=== PATIENT | male | born 1950 | race Caucasian/White ===

== ENCOUNTER 2017-08-20 14:32 | Inpatient (IN) | payer MEDICARE ==
[2017-08-20] MEDS ORDERED: Ondansetron 4 MG/2 ML SDV IVPUSH ONE (14:59)
[2017-08-20] MEDS ORDERED: Sodium Chloride 0.9% 10 ML Syringe FLUSH PRN (15:00)
[2017-08-20] MEDS ORDERED: Sodium Chloride 0.9% 1,000 ML IV ONE ×2 (15:05→16:28)
--- NOTE | 2017-08-20 15:16 | EDM.PDOC ---
ED HPI GENERAL MEDICAL PROBLEM - General Chief Complaint: General Stated Complaint: GRAVES DISEASE/FEELS TERRIBLE Time Seen by Provider: 08/20/17 15:00 Source of Information: Reports: Patient History Limitations: Reports: Other (almost no old records available) - History of Present Illness INITIAL COMMENTS - FREE TEXT/NARRATIVE: 67 yo male being tx'd for Grave's Dz has been experiencing a gradual increase in his thyroid numbers of late. Sx's now include weakness, fatigue, tremor, and nausea/vomiting. He has been in contact with his primary who increased his meds recently without effect yet apparently. Gets his care for the Grave's primarily in [place] with Dr. Payne endocrinology. Onset: Gradual Duration: Week(s):, Chronic, Getting Worse Location: Reports: Generalized Quality: Reports: Other (no pain) Severity: Moderate Improves with: Reports: None Worsens with: Reports: Other (? time) Context: Reports: Other (Grave's Dz) Associated Symptoms: Reports: Nausea/Vomiting, Weakness, Other (tremor). 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) (Usual meds.) Bilateral Leg Pain Score (Numeric/FACES): 3 - Related Data Allergies Allergy/AdvReac Type Severity Reaction Status Date / Time No Known Allergies Allergy Verified 08/20/17 14:50 Home Meds: Home Meds Betamethasone/Propylene Glyc [Betamethasone DP Aug 0.05%] 30 ml TP Q8HR PRN 03/01 [History] Methimazole 5 mg PO BEDTIME 08/20/17 [History] Methimazole 10 mg PO DAILY 08/20/17 [History] Social & Family History - Tobacco Use Second Hand Smoke Exposure: No - Alcohol Use Days Per Week of Alcohol Use: 0 - Recreational Drug Use Recreational Drug Use: No ED ROS GENERAL - Review of Systems Review Of Systems: See Below Constitutional: Reports: Fatigue HEENT: Reports: No Symptoms Respiratory: Reports: No Symptoms Cardiovascular: Reports: No Symptoms Endocrine: Reports: Fatigue GI/Abdominal: Reports: Hematemesis (small amounts), Nausea, Vomiting. Denies: Black Stool, Bloody Stool, Constipation, Diarrhea, Distension, Flatus, Hematochezia, Melena, Stool Incontinence : Reports: No Symptoms Musculoskeletal: Reports: No Symptoms Skin: Reports: No Symptoms Neurological: Reports: No Symptoms Psychiatric: Reports: No Symptoms ED EXAM, GENERAL - Physical Exam Exam: See Below Exam Limited By: No Limitations General Appearance: Alert, WD/WN, Mild Distress Eye Exam: Bilateral Eye: Proptosis Ears: Normal External Exam, Normal Canal, Hearing Grossly Normal, Normal TMs Ear Exam: Bilateral Ear: Auricle Normal, Canal Normal, TM normal Nose: Normal Inspection, Normal Mucosa, No Blood Throat/Mouth: Normal Inspection, Normal Lips, Normal Oropharynx, Normal Voice, No Airway Compromise Head: Atraumatic, Normocephalic Neck: Normal Inspection, Supple, Non-Tender Respiratory/Chest: No Respiratory Distress, Lungs Clear, Normal Breath Sounds, No Accessory Muscle Use Cardiovascular: Regular Rate, Rhythm, Tachycardia (mildly tachy) GI/Abdominal: Normal Bowel Sounds, Soft, Non-Tender, No Distention Back Exam: Normal Inspection. No: CVA Tenderness (R), CVA Tenderness (L) Extremities: Normal Inspection, Normal Range of Motion, Non-Tender, No Pedal Edema Neurological: Alert, Oriented, CN II-XII Intact, Normal Cognition, No Motor/ Sensory Deficits Psychiatric: Normal Affect, Normal Mood Skin Exam: Warm, Dry, Intact, Normal Color, No Rash Lymphatic: No Adenopathy Course - Vital Signs Text/Narrative:: Case discussed with endocrinology, Dr. Payne, [facility]. Recommends increasing his methimazole to 20 mg tid for a few days and then backing off again on the dose. Metoprolol 25 mg bid also should be given. Dr. Fitzgerald called @ 1721h Bladder scan 37 ml Last Recorded V/S: Last Vital Signs Temp 39.7 C H 08/20/17 16:17 Pulse 75 08/20/17 17:10 Resp 16 08/20/17 17:10 BP 129/59 L 08/20/17 17:10 Pulse Ox 95 08/20/17 17:10 - Orders/Labs/Meds Orders: Active Orders 24 hr Category Date Time Status Bladder Scan [RC] ONETIME Care 08/20/17 17:05 Active Cardiac Monitoring [RC] .As Directed Care 08/20/17 15:06 Active CULTURE BLOOD [BC] Stat Lab 08/20/17 16:05 Received CULTURE BLOOD [BC] Stat Lab 08/20/17 16:15 Received CULTURE URINE [RM] Stat Lab 08/20/17 17:04 Received Ciprofloxacin in D5W [Cipro in D5W 400 MG/200 ML] 400 Med 08/20/17 17:02 Active mg Premix Bag 1 bag IV ONETIME Sodium Chloride 0.9% [Normal Saline] 1,000 ml Med 08/20/17 16:28 Active IV .BOLUS Sodium Chloride 0.9% [Saline Flush] Med 08/20/17 15:00 Active 10 ml FLUSH ASDIRECTED PRN Saline Lock Insert [OM.PC] Routine Oth 08/20/17 15:00 Ordered Medication Orders Sodium Chloride (Normal Saline) 1,000 mls @ 1,000 mls/hr IV .BOLUS ONE Stop: 08/20/17 17:27 Last Admin: 08/20/17 16:36 Dose: 1,000 mls/hr Ciprofloxacin/Dextrose 400 mg/ (Premix) 200 mls @ 200 mls/hr IV ONETIME ONE Stop: 08/20/17 18:01 Last Admin: 08/20/17 17:12 Dose: 200 mls/hr Sodium Chloride (Saline Flush) 10 ml FLUSH ASDIRECTED PRN PRN Reason: Keep Vein Open Last Admin: 08/20/17 15:23 Dose: 10 ml Labs: Laboratory Tests 08/20/17 08/20/17 08/20/17 Range/Units 15:08 15:12 15:15 WBC 21.2 H (4.5-11.0) K/uL RBC 4.94 (4.30-5.90) M/uL Hgb 15.2 H D (12.0-15.0) g/dL Hct 43.8 (40.0-54.0) % MCV 89 (80-98) fL MCH 31 (27-31) pg MCHC 35 (32-36) % Plt Count 236 (150-400) K/uL Sodium 135 L (140-148) mmol/L Potassium 4.3 (3.6-5.2) mmol/L Chloride 101 (100-108) mmol/L Carbon Dioxide 22 (21-32) mmol/L Anion Gap 16.3 H (5.0-14.0) mmol/L BUN 16 (7-18) mg/dL Creatinine 1.1 (0.8-1.3) mg/dL Est Cr Clr Drug Dosing 66.36 mL/min Estimated GFR (MDRD) > 60 (>60) Glucose 109 H (74-106) mg/dL Lactic Acid (0.7-2.1) mmol/L Calcium 9.1 (8.5-10.1) mg/dL Free T4 1.86 H (0.76-1.46) ng/dL Free T3 4.75 H (2.18-3.98) pg/dL Urine Color Urine Appearance Urine pH (4.5-8.0) Ur Specific [place] (1.008-1.030) Urine Protein (NEGATIVE) mg/dL Urine Glucose (UA) (NEGATIVE) mg/dL Urine Ketones (NEGATIVE) mg/dL Urine Occult Blood (NEGATIVE) Urine Nitrite (NEGAITVE) Urine Bilirubin (NEGATIVE) Urine Urobilinogen (NORMAL) mg/dL Ur Leukocyte Esterase (NEGATIVE) Urine RBC (0-5) Urine WBC (0-5) Ur Epithelial Cells Amorphous Sediment Urine Bacteria Urine Mucus 08/20/17 08/20/17 Range/Units 16:15 16:31 WBC (4.5-11.0) K/uL RBC (4.30-5.90) M/uL Hgb (12.0-15.0) g/dL Hct (40.0-54.0) % MCV (80-98) fL MCH (27-31) pg MCHC (32-36) % Plt Count (150-400) K/uL Sodium (140-148) mmol/L Potassium (3.6-5.2) mmol/L Chloride (100-108) mmol/L Carbon Dioxide (21-32) mmol/L Anion Gap (5.0-14.0) mmol/L BUN (7-18) mg/dL Creatinine (0.8-1.3) mg/dL Est Cr Clr Drug Dosing mL/min Estimated GFR (MDRD) (>60) Glucose (74-106) mg/dL Lactic Acid 1.3 (0.7-2.1) mmol/L Calcium (8.5-10.1) mg/dL Free T4 (0.76-1.46) ng/dL Free T3 (2.18-3.98) pg/dL Urine Color [place] Urine Appearance Cloudy Urine pH 5.0 (4.5-8.0) Ur Specific [place] 1.020 (1.008-1.030) Urine Protein Negative (NEGATIVE) mg/dL Urine Glucose (UA) Normal (NEGATIVE) mg/dL Urine Ketones 15 H (NEGATIVE) mg/dL Urine Occult Blood Moderate (NEGATIVE) Urine Nitrite Negative (NEGAITVE) Urine Bilirubin Small (NEGATIVE) Urine Urobilinogen Normal (NORMAL) mg/dL Ur Leukocyte Esterase Moderate (NEGATIVE) Urine RBC 5-10 H (0-5) Urine WBC Semi-packed H (0-5) Ur Epithelial Cells Moderate Amorphous Sediment Few Urine Bacteria Few Urine Mucus Few Meds: Medications Generic Name Dose Route Start Last Admin Trade Name Freq PRN Reason Stop Dose Admin Sodium Chloride 1,000 mls @ 1,000 mls/hr 08/20/17 16:28 08/20/17 16:36 Normal Saline IV 08/20/17 17:27 1,000 mls/hr .BOLUS ONE Administration Ciprofloxacin/Dextrose 400 mg/ 200 mls @ 200 mls/hr 08/20/17 17:02 08/20/17 17:12 Premix IV 08/20/17 18:01 200 mls/hr ONETIME ONE Administration Sodium Chloride 10 ml 08/20/17 15:00 08/20/17 15:23 Saline Flush FLUSH 10 ml ASDIRECTED PRN Administration Keep Vein Open Discontinued Medications Generic Name Dose Route Start Last Admin Trade Name Freq PRN Reason Stop Dose Admin Acetaminophen 1,000 mg 08/20/17 16:01 08/20/17 16:14 Tylenol Extra Strength PO 08/20/17 16:02 1,000 mg ONETIME ONE Administration Sodium Chloride 1,000 mls @ 1,000 mls/hr 08/20/17 15:05 08/20/17 15:22 Normal Saline IV 08/20/17 16:04 1,000 mls/hr .BOLUS ONE Administration Metoprolol Tartrate 50 mg 08/20/17 15:27 08/20/17 15:30 Lopressor PO 08/20/17 15:28 50 mg ONETIME ONE Administration Ondansetron HCl 4 mg 08/20/17 14:59 08/20/17 15:02 Zofran IVPUSH 08/20/17 15:00 4 mg ONETIME ONE Administration Departure - Departure Time of Disposition: 17:45 Disposition: Admitted As Inpatient 65 Condition: Serious Clinical Impression: Graves disease UTI (urinary tract infection) Qualifiers: Urinary tract infection type: acute pyelonephritis Qualified Code(s): N10 - Acute pyelonephritis Thyrotoxicosis Qualifiers: Thyrotoxicosis type: other Thyrotoxic crisis or storm presence: without thyrotoxic crisis or storm Qualified Code(s): E05.80 - Other thyrotoxicosis without thyrotoxic crisis or storm - Discharge Information Referrals: Esteban Fitzgerald Sr, MD [Primary Care Provider] - Forms: ED Department Discharge - My Orders Last 24 Hours: My Active Orders 08/20/17 15:00 Sodium Chloride 0.9% [Saline Flush] 10 ml FLUSH ASDIRECTED PRN Saline Lock Insert [OM.PC] Routine 08/20/17 15:06 Cardiac Monitoring [RC] .As Directed 08/20/17 16:05 CULTURE BLOOD [BC] Stat 08/20/17 16:15 CULTURE BLOOD [BC] Stat 08/20/17 16:28 Sodium Chloride 0.9% [Normal Saline] 1,000 ml IV .BOLUS 08/20/17 17:02 Ciprofloxacin in D5W [Cipro in D5W 400 MG/200 ML] 400 mg Premix Bag 1 bag IV ONETIME 08/20/17 17:04 CULTURE URINE [RM] Stat 08/20/17 17:05 Bladder Scan [RC] ONETIME - Assessment/Plan Last 24 Hours: My Active Orders 08/20/17 15:00 Sodium Chloride 0.9% [Saline Flush] 10 ml FLUSH ASDIRECTED PRN Saline Lock Insert [OM.PC] Routine 08/20/17 15:06 Cardiac Monitoring [RC] .As Directed 08/20/17 16:05 CULTURE BLOOD [BC] Stat 08/20/17 16:15 CULTURE BLOOD [BC] Stat 08/20/17 16:28 Sodium Chloride 0.9% [Normal Saline] 1,000 ml IV .BOLUS 08/20/17 17:02 Ciprofloxacin in D5W [Cipro in D5W 400 MG/200 ML] 400 mg Premix Bag 1 bag IV ONETIME 08/20/17 17:04 CULTURE URINE [RM] Stat 08/20/17 17:05 Bladder Scan [RC] ONETIME
[2017-08-20] MEDS ORDERED: Metoprolol Tartrate 50 MG Tab PO ONE (15:27)
[2017-08-20] MEDS ORDERED: Acetaminophen 500 MG Tab PO ONE (16:01)
[2017-08-20] MEDS ORDERED: Ciprofloxacin in D5W 400 MG in Premix Bag 1 BAG IV ONE ×2 (17:02)
[2017-08-20] MEDS ORDERED: Ondansetron 4 MG Tab.DIS PO PRN (17:45)
--- NOTE | 2017-08-20 18:13 | PCM.HP ---
H&P History of Present Illness - General Date of Service: 08/20/17 Admit Problem/Dx: Admission Diagnosis/Problem Admission Diagnosis/Problem Urosepsis Source of Information: Patient History Limitations: Reports: No Limitations - History of Present Illness Initial Comments - Free Text/Narative: Fever and Chills with N and v started 2 days ago. Feeling the urgency to pass urine without urine flow once in the Bathroom. Had a temp. of 103 f. Duration of Symptoms: Reports: Getting Worse Improves with: Reports: None Worsens with: Reports: None Associated Symptoms: Reports: Nausea/Vomiting, Weakness Bilateral Leg Pain Score (Numeric/FACES): 3 - Related Data Allergies/Adverse Reactions: Allergies Allergy/AdvReac Type Severity Reaction Status Date / Time No Known Allergies Allergy Verified 08/20/17 18:01 Home Medications: Home Meds Betamethasone/Propylene Glyc [Betamethasone DP Aug 0.05%] 30 ml TP Q8HR PRN 03/01 [History] Methimazole 5 mg PO BEDTIME 08/20/17 [History] Methimazole 10 mg PO DAILY 08/20/17 [History] Past Medical History HEENT History: Reports: Impaired Vision, Other (See Below) Other HEENT History: thyroid eye disorder Cardiovascular History: Reports: Hypertension Musculoskeletal History: Reports: Fracture, Other (See Below) Other Musculoskeletal History: finger Neurological History: Reports: Neuropathy, Peripheral Endocrine/Metabolic History: Reports: Other (See Below) Other Endocrine/Metabolic History: Graves Dermatologic History: Reports: Other (See Below) Other Dermatologic History: numbulor dermatitis - Infectious Disease History Infectious Disease History: Reports: Chicken Pox, Measles, Mumps, Shingles - Past Surgical History GI Surgical History: Reports: Appendectomy Social & Family History - Tobacco Use Smoking Status *Q: Never Smoker Second Hand Smoke Exposure: No - Caffeine Use Caffeine Use: Reports: Soda, Tea - Alcohol Use Days Per Week of Alcohol Use: 0 - Recreational Drug Use Recreational Drug Use: No H&P Review of Systems - Review of Systems: Review Of Systems: See Below General: Reports: Fever, Chills, Weakness, Fatigue, Diaphoresis HEENT: Reports: No Symptoms Pulmonary: Reports: No Symptoms Cardiovascular: Reports: No Symptoms Gastrointestinal: Reports: Nausea, Vomiting Genitourinary: Reports: Dysuria, Frequency, Urgency Musculoskeletal: Reports: No Symptoms Skin: Reports: No Symptoms Psychiatric: Reports: No Symptoms Neurological: Reports: No Symptoms Hematologic/Lymphatic: Reports: No Symptoms Immunologic: Reports: No Symptoms Exam - Exam Exam: See Below - Vital Signs Vital Signs: Last Vital Signs Temp 103.5 F H 08/20/17 16:17 Pulse 75 08/20/17 17:10 Resp 16 08/20/17 17:10 BP 129/59 L 08/20/17 17:10 Pulse Ox 95 08/20/17 17:10 Weight: 199 lb 15.348 oz - Exam General: Alert HEENT: PERRLA Neck: Supple Lungs: Clear to Auscultation, Crackles GI/Abdominal Exam: Normal Bowel Sounds Back Exam: Normal Inspection Extremities: Normal Inspection Peripheral Pulses: 1+: Radial (L), Radial (R) Skin: Warm, Dry Neuro Extensive - Mental Status: Alert, Oriented x3 Neuro Extensive - Motor, Sensory, Reflexes: CN II-XII Intact DTR: 1+: Patella (L), Patella (R) Psychiatric: Alert, Normal Affect, Normal Mood - Patient Data Lab Results Last 24 hrs: Laboratory Results - last 24 hr 08/20/17 08/20/17 08/20/17 Range/Units 15:08 15:12 15:15 WBC 21.2 H (4.5-11.0) K/uL RBC 4.94 (4.30-5.90) M/uL Hgb 15.2 H D (12.0-15.0) g/dL Hct 43.8 (40.0-54.0) % MCV 89 (80-98) fL MCH 31 (27-31) pg MCHC 35 (32-36) % Plt Count 236 (150-400) K/uL Sodium 135 L (140-148) mmol/L Potassium 4.3 (3.6-5.2) mmol/L Chloride 101 (100-108) mmol/L Carbon Dioxide 22 (21-32) mmol/L Anion Gap 16.3 H (5.0-14.0) mmol/L BUN 16 (7-18) mg/dL Creatinine 1.1 (0.8-1.3) mg/dL Est Cr Clr Drug Dosing 66.36 mL/min Estimated GFR (MDRD) > 60 (>60) Glucose 109 H (74-106) mg/dL Lactic Acid (0.7-2.1) mmol/L Calcium 9.1 (8.5-10.1) mg/dL Free T4 1.86 H (0.76-1.46) ng/dL Free T3 4.75 H (2.18-3.98) pg/dL Urine Color Urine Appearance Urine pH (4.5-8.0) Ur Specific [place] (1.008-1.030) Urine Protein (NEGATIVE) mg/dL Urine Glucose (UA) (NEGATIVE) mg/dL Urine Ketones (NEGATIVE) mg/dL Urine Occult Blood (NEGATIVE) Urine Nitrite (NEGAITVE) Urine Bilirubin (NEGATIVE) Urine Urobilinogen (NORMAL) mg/dL Ur Leukocyte Esterase (NEGATIVE) Urine RBC (0-5) Urine WBC (0-5) Ur Epithelial Cells Amorphous Sediment Urine Bacteria Urine Mucus 08/20/17 08/20/17 Range/Units 16:15 16:31 WBC (4.5-11.0) K/uL RBC (4.30-5.90) M/uL Hgb (12.0-15.0) g/dL Hct (40.0-54.0) % MCV (80-98) fL MCH (27-31) pg MCHC (32-36) % Plt Count (150-400) K/uL Sodium (140-148) mmol/L Potassium (3.6-5.2) mmol/L Chloride (100-108) mmol/L Carbon Dioxide (21-32) mmol/L Anion Gap (5.0-14.0) mmol/L BUN (7-18) mg/dL Creatinine (0.8-1.3) mg/dL Est Cr Clr Drug Dosing mL/min Estimated GFR (MDRD) (>60) Glucose (74-106) mg/dL Lactic Acid 1.3 (0.7-2.1) mmol/L Calcium (8.5-10.1) mg/dL Free T4 (0.76-1.46) ng/dL Free T3 (2.18-3.98) pg/dL Urine Color [place] Urine Appearance Cloudy Urine pH 5.0 (4.5-8.0) Ur Specific [place] 1.020 (1.008-1.030) Urine Protein Negative (NEGATIVE) mg/dL Urine Glucose (UA) Normal (NEGATIVE) mg/dL Urine Ketones 15 H (NEGATIVE) mg/dL Urine Occult Blood Moderate (NEGATIVE) Urine Nitrite Negative (NEGAITVE) Urine Bilirubin Small (NEGATIVE) Urine Urobilinogen Normal (NORMAL) mg/dL Ur Leukocyte Esterase Moderate (NEGATIVE) Urine RBC 5-10 H (0-5) Urine WBC Semi-packed H (0-5) Ur Epithelial Cells Moderate Amorphous Sediment Few Urine Bacteria Few Urine Mucus Few Result Diagrams: 08/20/17 15:15 08/20/17 15:08 *Q Meaningful Use (ADM) - VTE *Q VTE Criteria *Q: - Stroke *Q Stroke Criteria *Q: - AMI *Q AMI Criteria *Q: Problem List Initiated/Reviewed/Updated: Yes Orders Last 24hrs: Active Orders 24 hr Category Date Time Status Patient Status [ADT] Routine ADT 08/20/17 17:46 Ordered Ambulate [RC] QID Care 08/20/17 17:45 Ordered Cardiac Monitoring [RC] .As Directed Care 08/20/17 15:06 Active Height and Weight [RC] UPON Care 08/20/17 17:45 Ordered Intake and Output [RC] QSHIFT Care 08/20/17 17:50 Ordered May Shower [RC] ASDIRECTED Care 08/20/17 17:45 Ordered Oxygen Therapy [RC] PRN Care 08/20/17 17:46 Ordered Up to Chair [RC] QID Care 08/20/17 17:45 Ordered VTE/DVT Education [RC] Per Unit Routine Care 08/20/17 17:46 Ordered Vital Signs [RC] Q4H Care 08/20/17 17:46 Ordered Regular Diet [DIET] Diet 08/21/17 Breakfast Ordered CULTURE BLOOD [BC] Stat Lab 08/20/17 16:05 Received CULTURE BLOOD [BC] Stat Lab 08/20/17 16:15 Received CULTURE URINE [RM] Stat Lab 08/20/17 17:04 Received Methimazole Med 08/20/17 21:00 Ordered 10 mg PO BEDTIME Methimazole Med 08/21/17 09:00 Ordered 10 mg PO DAILY Ondansetron [Zofran ODT] Med 08/20/17 17:45 Ordered 4 mg PO Q6H PRN Sodium Chloride 0.9% [Saline Flush] Med 08/20/17 15:00 Active 10 ml FLUSH ASDIRECTED PRN Saline Lock Insert [OM.PC] Routine Oth 08/20/17 15:00 Ordered Resuscitation Status Routine Resus Stat 08/20/17 17:45 Ordered Medication Orders Methimazole (Methimazole) 10 mg PO DAILY [facility] Methimazole (Methimazole) 10 mg PO BEDTIME [facility] Ondansetron HCl (Zofran Odt) 4 mg PO Q6H PRN PRN Reason: Nausea able to take PO Sodium Chloride (Saline Flush) 10 ml FLUSH ASDIRECTED PRN PRN Reason: Keep Vein Open Last Admin: 08/20/17 15:23 Dose: 10 ml Assessment/Plan Comment:: Assessment/Plan; l. UTI: Will treat with Rocephin and Levofloxacin until cultures are reported. 2. Hyperthyroid: (thyrotoxicosis) Will increase meds to 20 mg daily of methimazole. 3. Hypertension: Will increase metolprolol to 25 mg bid. 4. Polyperipheral neuropathy: 5. Nummular dermatiits
[2017-08-20] MEDS: Dextrose 5%-0.9% NaCl 1,000 ML IV SCH (18:48)
[2017-08-20] MEDS: Levofloxacin/Dextrose 5%-Water 500 MG in Premix Bag 1 BAG IV SCH (19:14)
[2017-08-20] MEDS: Methimazole 5 MG Tab PO SCH (20:53)
[2017-08-20] MEDS: cefTRIAXone 1 GM in Sodium Chloride 0.9% 50 ML IV SCH (20:54)
[2017-08-20] MEDS ORDERED: Aspirin 325 MG Tab.EC PO PRN (21:35)
[2017-08-21] MEDS: Dextrose 5%-0.9% NaCl 1,000 ML IV SCH ×2 (02:59→16:11)
[2017-08-21] MEDS: Methimazole 5 MG Tab PO SCH ×2 (08:20→20:06)
[2017-08-21] MEDS ORDERED: Dextrose 5%-0.9% NaCl 1,000 ML IV SCH (17:15)
[2017-08-21] MEDS: Levofloxacin/Dextrose 5%-Water 500 MG in Premix Bag 1 BAG IV SCH (17:36)
--- NOTE | 2017-08-21 18:12 | PCM.PN ---
- General Info Date of Service: 08/21/17 Functional Status: Reports: Pain Controlled - Review of Systems General: Reports: Weakness, Fatigue HEENT: Reports: No Symptoms Pulmonary: Reports: No Symptoms Cardiovascular: Reports: No Symptoms Gastrointestinal: Reports: Nausea Genitourinary: Reports: Urgency Musculoskeletal: Reports: Other (chronic muscle and joint pains) - Patient Data Vitals - Most Recent: Last Vital Signs Temp 99.5 F 08/21/17 14:11 Pulse 58 L 08/21/17 14:11 Resp 16 08/21/17 14:11 BP 116/51 L 08/21/17 14:11 Pulse Ox 98 08/21/17 14:11 Weight - Most Recent: 192 lb 0.009 oz I&O - Last 24 Hours: Intake & Output 08/21/17 08/21/17 08/21/17 06:59 14:59 22:59 Intake Total 1875 500 240 Output Total 675 850 125 Balance 1200 -350 115 Med Orders - Current: Current Medications Aspirin (Ecotrin) 325 - 650 mg PO Q6H PRN PRN Reason: Pain (moderate 4-6) Last Admin: 08/20/17 22:06 Dose: 650 mg Ceftriaxone Sodium 1 gm/ (Sodium Chloride) 50 mls @ 100 mls/hr IV Q24H [facility] Last Admin: 08/20/17 20:54 Dose: 100 mls/hr Levofloxacin/Dextrose 500 mg/ (Premix) 100 mls @ 100 mls/hr IV Q24H [facility] Last Admin: 08/21/17 17:36 Dose: 100 mls/hr Dextrose/Sodium Chloride (Dextrose 5%-Normal Saline) 1,000 mls @ 75 mls/hr IV ASDIRECTED [facility] Methimazole (Methimazole) 10 mg PO DAILY [facility] Last Admin: 08/21/17 08:20 Dose: 10 mg Methimazole (Methimazole) 10 mg PO BEDTIME [facility] Last Admin: 08/20/17 20:53 Dose: 10 mg Ondansetron HCl (Zofran Odt) 4 mg PO Q6H PRN PRN Reason: Nausea able to take PO Sodium Chloride (Saline Flush) 10 ml FLUSH ASDIRECTED PRN PRN Reason: Keep Vein Open Last Admin: 08/20/17 15:23 Dose: 10 ml Discontinued Medications Acetaminophen (Tylenol Extra Strength) 1,000 mg PO ONETIME ONE Stop: 08/20/17 16:02 Last Admin: 08/20/17 16:14 Dose: 1,000 mg Sodium Chloride (Normal Saline) 1,000 mls @ 1,000 mls/hr IV .BOLUS ONE Stop: 08/20/17 16:04 Last Admin: 08/20/17 15:22 Dose: 1,000 mls/hr Sodium Chloride (Normal Saline) 1,000 mls @ 1,000 mls/hr IV .BOLUS ONE Stop: 08/20/17 17:27 Last Admin: 08/20/17 16:36 Dose: 1,000 mls/hr Ciprofloxacin/Dextrose 400 mg/ (Premix) 200 mls @ 200 mls/hr IV ONETIME ONE Stop: 08/20/17 18:01 Last Admin: 08/20/17 17:12 Dose: 200 mls/hr Dextrose/Sodium Chloride (Dextrose 5%-Normal Saline) 1,000 mls @ 150 mls/hr IV ASDIRECTED [facility] Last Admin: 08/21/17 16:11 Dose: 150 mls/hr Metoprolol Tartrate (Lopressor) 50 mg PO ONETIME ONE Stop: 08/20/17 15:28 Last Admin: 08/20/17 15:30 Dose: 50 mg Ondansetron HCl (Zofran) 4 mg IVPUSH ONETIME ONE Stop: 08/20/17 15:00 Last Admin: 08/20/17 15:02 Dose: 4 mg - Exam General: Alert, Oriented HEENT: Pupils Equal Neck: Supple Lungs: Clear to Auscultation, Normal Respiratory Effort Cardiovascular: Regular Rate, Regular Rhythm GI/Abdominal Exam: Normal Bowel Sounds, Soft, Non-Tender, No Organomegaly, No Distention, No Abnormal Bruit, No Mass, Pelvis Stable Extremities: Normal Inspection Skin: Warm, Dry, Intact Psy/Mental Status: Alert, Normal Affect, Normal Mood - Problem List Review Problem List Initiated/Reviewed/Updated: Yes - My Orders Last 24 Hours: My Active Orders 08/20/17 18:30 Levofloxacin/Dextrose 5%-Water [Levaquin in D5W 500 MG/100 ML] 500 mg Premix Bag 1 bag IV Q24H 08/20/17 19:30 cefTRIAXone [Rocephin] 1 gm Sodium Chloride 0.9% [Normal Saline] 50 ml IV Q24H 08/20/17 21:00 Methimazole 10 mg PO BEDTIME 08/20/17 21:11 SCD [Sequential Compression Device] [OM.PC] Routine 08/20/17 21:35 Aspirin [Ecotrin] 325 - 650 mg PO Q6H PRN 08/21/17 09:00 Methimazole 10 mg PO DAILY 08/21/17 17:15 Dextrose 5%-0.9% NaCl [Dextrose 5%-Normal Saline] 1,000 ml IV ASDIRECTED 08/22/17 05:00 CBC WITH AUTO DIFF [HEME] Routine COMPREHENSIVE METABOLIC PN,CMP [CHEM] Routine UA W/MICROSCOPIC [URIN] Routine - Plan Plan:: Assessment/Plan; l. UTI: slowly improving. Blood work pending tomorrow and a urine evaluation 2. Hyperthyroid: (thyrotoxicosis) Will increase meds to 20 mg daily of methimazole. 3. Hypertension: Will increase metolprolol to 25 mg bid. 4. Polyperipheral neuropathy: 5. Nummular dermatiits
[2017-08-21] MEDS: cefTRIAXone 1 GM in Sodium Chloride 0.9% 50 ML IV SCH (19:35)
[2017-08-22] MEDS: Methimazole 5 MG Tab PO SCH ×3 (08:12→20:40)
--- NOTE | 2017-08-22 17:00 | PCM.PN ---
- General Info Date of Service: 08/22/17 Functional Status: Reports: Pain Controlled - Review of Systems General: Reports: Weakness HEENT: Reports: No Symptoms Pulmonary: Reports: No Symptoms Cardiovascular: Reports: No Symptoms Gastrointestinal: Reports: Diarrhea Genitourinary: Reports: No Symptoms Musculoskeletal: Reports: Joint Pain Skin: Reports: No Symptoms Neurological: Reports: Difficulty Walking Psychiatric: Reports: No Symptoms - Patient Data Vitals - Most Recent: Last Vital Signs Temp 97.9 F 08/22/17 10:56 Pulse 62 08/22/17 10:56 Resp 18 08/22/17 10:56 BP 144/65 H 08/22/17 10:56 Pulse Ox 98 08/22/17 10:56 Weight - Most Recent: 192 lb 0.009 oz I&O - Last 24 Hours: Intake & Output 08/22/17 08/22/17 08/22/17 06:59 14:59 22:59 Intake Total 1003 720 Output Total 400 530 Balance 603 190 Lab Results Last 24 Hours: Laboratory Results - last 24 hr 08/22/17 08/22/17 08/22/17 Range/Units 02:20 05:45 05:45 WBC 12.4 H (4.5-11.0) K/uL RBC 4.28 L (4.30-5.90) M/uL Hgb 13.0 D (12.0-15.0) g/dL Hct 38.8 L (40.0-54.0) % MCV 91 (80-98) fL MCH 30 (27-31) pg MCHC 34 (32-36) % Plt Count 176 (150-400) K/uL Neut % (Auto) 68 H (36-66) % Lymph % (Auto) 18 L (24-44) % [place] % (Auto) 13 H (2-6) % Eos % (Auto) 1 L (2-4) % Baso % (Auto) 0 (0-1) % Sodium 140 (140-148) mmol/L Potassium 4.1 (3.6-5.2) mmol/L Chloride 109 H (100-108) mmol/L Carbon Dioxide 23 (21-32) mmol/L Anion Gap 12.1 (5.0-14.0) mmol/L BUN 10 (7-18) mg/dL Creatinine 0.9 (0.8-1.3) mg/dL Est Cr Clr Drug Dosing 81.31 mL/min Estimated GFR (MDRD) > 60 (>60) Glucose 98 (74-106) mg/dL Calcium 8.3 L (8.5-10.1) mg/dL Total Bilirubin 0.5 D (0.2-1.0) mg/dL AST 19 (15-37) U/L ALT 26 (12-78) U/L Alkaline Phosphatase 79 (46-116) U/L Total Protein 5.8 L (6.4-8.2) g/dL Albumin 2.3 L (3.4-5.0) g/dL Globulin 3.5 (2.3-3.5) g/dL Albumin/Globulin Ratio 0.7 L (1.2-2.2) Urine Color Yellow Urine Appearance Clear Urine pH 5.0 (4.5-8.0) Ur Specific [place] 1.020 (1.008-1.030) Urine Protein Negative (NEGATIVE) mg/dL Urine Glucose (UA) Normal (NEGATIVE) mg/dL Urine Ketones Negative (NEGATIVE) mg/dL Urine Occult Blood Negative (NEGATIVE) Urine Nitrite Negative (NEGAITVE) Urine Bilirubin Negative (NEGATIVE) Urine Urobilinogen Normal (NORMAL) mg/dL Ur Leukocyte Esterase Negative (NEGATIVE) Urine RBC 0-5 (0-5) Urine WBC 0-5 (0-5) Ur Epithelial Cells Rare Amorphous Sediment Not seen Urine Bacteria Few Urine Mucus Not seen Med Orders - Current: Current Medications Aspirin (Ecotrin) 325 - 650 mg PO Q6H PRN PRN Reason: Pain (moderate 4-6) Last Admin: 08/20/17 22:06 Dose: 650 mg Ceftriaxone Sodium 1 gm/ (Sodium Chloride) 50 mls @ 100 mls/hr IV Q24H [facility] Last Admin: 08/21/17 19:35 Dose: 100 mls/hr Levofloxacin/Dextrose 500 mg/ (Premix) 100 mls @ 100 mls/hr IV Q24H [facility] Last Admin: 08/21/17 17:36 Dose: 100 mls/hr Dextrose/Sodium Chloride (Dextrose 5%-Normal Saline) 1,000 mls @ 75 mls/hr IV ASDIRECTED [facility] Last Admin: 08/22/17 05:29 Dose: 75 mls/hr Methimazole (Methimazole) 10 mg PO DAILY [facility] Last Admin: 08/22/17 08:12 Dose: 10 mg Methimazole (Methimazole) 10 mg PO BEDTIME [facility] Last Admin: 08/21/17 20:06 Dose: 10 mg Ondansetron HCl (Zofran Odt) 4 mg PO Q6H PRN PRN Reason: Nausea able to take PO Sodium Chloride (Saline Flush) 10 ml FLUSH ASDIRECTED PRN PRN Reason: Keep Vein Open Last Admin: 08/20/17 15:23 Dose: 10 ml Discontinued Medications Acetaminophen (Tylenol Extra Strength) 1,000 mg PO ONETIME ONE Stop: 08/20/17 16:02 Last Admin: 08/20/17 16:14 Dose: 1,000 mg Sodium Chloride (Normal Saline) 1,000 mls @ 1,000 mls/hr IV .BOLUS ONE Stop: 08/20/17 16:04 Last Admin: 08/20/17 15:22 Dose: 1,000 mls/hr Sodium Chloride (Normal Saline) 1,000 mls @ 1,000 mls/hr IV .BOLUS ONE Stop: 08/20/17 17:27 Last Admin: 08/20/17 16:36 Dose: 1,000 mls/hr Ciprofloxacin/Dextrose 400 mg/ (Premix) 200 mls @ 200 mls/hr IV ONETIME ONE Stop: 08/20/17 18:01 Last Admin: 08/20/17 17:12 Dose: 200 mls/hr Dextrose/Sodium Chloride (Dextrose 5%-Normal Saline) 1,000 mls @ 150 mls/hr IV ASDIRECTED [facility] Last Admin: 08/21/17 16:11 Dose: 150 mls/hr Metoprolol Tartrate (Lopressor) 50 mg PO ONETIME ONE Stop: 08/20/17 15:28 Last Admin: 08/20/17 15:30 Dose: 50 mg Ondansetron HCl (Zofran) 4 mg IVPUSH ONETIME ONE Stop: 08/20/17 15:00 Last Admin: 08/20/17 15:02 Dose: 4 mg - Exam General: Alert, Oriented Neck: Supple Lungs: Clear to Auscultation, Normal Respiratory Effort Cardiovascular: Regular Rate, Regular Rhythm Extremities: Normal Inspection, Normal Range of Motion, Non-Tender, No Pedal Edema, Normal Capillary Refill Peripheral Pulses: 1+: Radial (L), Radial (R) Skin: Warm, Dry, Intact Psy/Mental Status: Alert, Normal Affect, Normal Mood - Problem List Review Problem List Initiated/Reviewed/Updated: Yes - My Orders Last 24 Hours: My Active Orders 08/21/17 17:15 Dextrose 5%-0.9% NaCl [Dextrose 5%-Normal Saline] 1,000 ml IV ASDIRECTED 08/22/17 16:54 CBC WITH AUTO DIFF [HEME] Routine - Plan Plan:: Assessment/Plan; l. UTI: Cultures so far are neg. He is afebrile. CBC in the morning. 2. Hyperthyroid: (thyrotoxicosis) Will increase meds to 20 mg daily of methimazole. 3. Hypertension: Will increase metolprolol to 25 mg bid. BP 144 4. Polyperipheral neuropathy: 5. Nummular dermatiits Try to discharge tomorrow.
[2017-08-22] MEDS: Levofloxacin/Dextrose 5%-Water 500 MG in Premix Bag 1 BAG IV SCH (18:00)
[2017-08-22] MEDS: cefTRIAXone 1 GM in Sodium Chloride 0.9% 50 ML IV SCH (19:18)
[2017-08-23] MEDS: Methimazole 5 MG Tab PO SCH (09:14)
--- NOTE | 2017-08-23 10:12 | PCM.DCSUM1 ---
Discharge Summary - Hospital Course Brief History: History of a 2 day onset of N and V with fever and chills. Has a history of thyroid dysfunction on treatment. - Discharge Data Discharge Date: 08/23/17 Discharge Disposition: Home, Self-Care 01 Condition: Stable - Patient Summary/Data Hospital Course: Put one antibiotics Levaquin and Rocephin and became afebrile while in the hospital and white count dropped from over 20,000. He had a gradual improvement while hospitalized and gained his strength back. - Patient Instructions Diet: Heart Healthy Diet Activity: As Tolerated - Discharge Plan Home Medications: Home Meds Betamethasone/Propylene Glyc [Betamethasone DP Aug 0.05%] 30 ml TP Q8HR PRN 03/01 [History] Aspirin [Ecotrin] 325 - 650 mg PO Q6H PRN tab.ec 08/23/17 [Rx] Levofloxacin/Dextrose 5%-Water [Levaquin in D5W 500 MG/100 ML] 500 mg IV Q24H 5 Days bag 08/23/17 [Rx] Methimazole 10 mg PO BIDMEALS #0 08/23/17 [Rx] Referrals: Esteban Fitzgerald Sr, MD [Primary Care Provider] - - Discharge Summary/Plan Comment Discharge Summary/Plan Comment: He was discharged home in stable condition and will see in the office in 1-2 weeks. Assessment/Plan; l. UTI: Cultures are neg. He is afebrile. CBC improved with WBC 10,000 2. Hyperthyroid: (thyrotoxicosis) Continue with 20 mg daily of methimazole. 3. Hypertension: Will continue with metolprolol to 25 mg bid. 4. Polyperipheral neuropathy: Chronic 5. Nummular dermatiits: Chronic - General Info Date of Service: 08/23/17 Functional Status: Reports: Pain Controlled - Review of Systems General: Reports: Weakness, Fatigue HEENT: Reports: No Symptoms Pulmonary: Reports: No Symptoms Cardiovascular: Reports: No Symptoms Gastrointestinal: Reports: No Symptoms Genitourinary: Reports: No Symptoms Musculoskeletal: Reports: Other (neuro-muscular pain) Skin: Reports: No Symptoms Neurological: Reports: Numbness Psychiatric: Reports: No Symptoms - Patient Data Vitals - Most Recent: Last Vital Signs Temp 98.4 F 08/23/17 07:10 Pulse 72 08/23/17 07:10 Resp 16 08/23/17 07:10 BP 148/67 H 08/23/17 07:10 Pulse Ox 97 08/23/17 07:10 Weight - Most Recent: 192 lb 0.009 oz I&O - Last 24 hours: Intake & Output 08/22/17 08/23/17 08/23/17 22:59 06:59 14:59 Intake Total 100 360 Output Total 600 1000 Balance -500 -640 Lab Results - Last 24 hrs: Laboratory Results - last 24 hr 08/23/17 Range/Units 05:36 WBC 10.7 (4.5-11.0) K/uL RBC 4.22 L (4.30-5.90) M/uL Hgb 12.7 (12.0-15.0) g/dL Hct 37.9 L (40.0-54.0) % MCV 90 (80-98) fL MCH 30 (27-31) pg MCHC 34 (32-36) % Plt Count 206 (150-400) K/uL Neut % (Auto) 68 H (36-66) % Lymph % (Auto) 18 L (24-44) % [place] % (Auto) 13 H (2-6) % Eos % (Auto) 2 (2-4) % Baso % (Auto) 0 (0-1) % Med Orders - Current: Current Medications Aspirin (Ecotrin) 325 - 650 mg PO Q6H PRN PRN Reason: Pain (moderate 4-6) Last Admin: 08/20/17 22:06 Dose: 650 mg Ceftriaxone Sodium 1 gm/ (Sodium Chloride) 50 mls @ 100 mls/hr IV Q24H [facility] Last Admin: 08/22/17 19:18 Dose: 100 mls/hr Levofloxacin/Dextrose 500 mg/ (Premix) 100 mls @ 100 mls/hr IV Q24H [facility] Last Admin: 08/22/17 18:00 Dose: 100 mls/hr Methimazole (Methimazole) 10 mg PO DAILY [facility] Last Admin: 08/23/17 09:14 Dose: 10 mg Methimazole (Methimazole) 10 mg PO BEDTIME [facility] Last Admin: 08/22/17 20:40 Dose: Not Given Ondansetron HCl (Zofran Odt) 4 mg PO Q6H PRN PRN Reason: Nausea able to take PO Sodium Chloride (Saline Flush) 10 ml FLUSH ASDIRECTED PRN PRN Reason: Keep Vein Open Last Admin: 08/20/17 15:23 Dose: 10 ml Discontinued Medications Acetaminophen (Tylenol Extra Strength) 1,000 mg PO ONETIME ONE Stop: 08/20/17 16:02 Last Admin: 08/20/17 16:14 Dose: 1,000 mg Sodium Chloride (Normal Saline) 1,000 mls @ 1,000 mls/hr IV .BOLUS ONE Stop: 08/20/17 16:04 Last Admin: 08/20/17 15:22 Dose: 1,000 mls/hr Sodium Chloride (Normal Saline) 1,000 mls @ 1,000 mls/hr IV .BOLUS ONE Stop: 08/20/17 17:27 Last Admin: 08/20/17 16:36 Dose: 1,000 mls/hr Ciprofloxacin/Dextrose 400 mg/ (Premix) 200 mls @ 200 mls/hr IV ONETIME ONE Stop: 08/20/17 18:01 Last Admin: 08/20/17 17:12 Dose: 200 mls/hr Dextrose/Sodium Chloride (Dextrose 5%-Normal Saline) 1,000 mls @ 150 mls/hr IV ASDIRECTED [facility] Last Admin: 08/21/17 16:11 Dose: 150 mls/hr Dextrose/Sodium Chloride (Dextrose 5%-Normal Saline) 1,000 mls @ 75 mls/hr IV ASDIRECTED [facility] Last Admin: 08/22/17 05:29 Dose: 75 mls/hr Metoprolol Tartrate (Lopressor) 50 mg PO ONETIME ONE Stop: 08/20/17 15:28 Last Admin: 08/20/17 15:30 Dose: 50 mg Ondansetron HCl (Zofran) 4 mg IVPUSH ONETIME ONE Stop: 08/20/17 15:00 Last Admin: 08/20/17 15:02 Dose: 4 mg - Exam General: Reports: Alert, Oriented HEENT: Reports: Pupils Equal, Pupils Reactive, EOMI, Mucous Membr. Moist/[place] Neck: Reports: Supple Lungs: Reports: Clear to Auscultation, Normal Respiratory Effort Cardiovascular: Reports: Regular Rate, Regular Rhythm GI/Abdominal Exam: Normal Bowel Sounds, Soft, Non-Tender, No Organomegaly, No Distention, No Abnormal Bruit, No Mass, Pelvis Stable Back Exam: Reports: Normal Inspection, Full Range of Motion Extremities: Normal Inspection, Normal Range of Motion, Non-Tender, No Pedal Edema, Normal Capillary Refill Psy/Mental Status: Reports: Alert, Normal Affect, Normal Mood *Q Meaningful Use (DIS) - VTE *Q VTE Criteria *Q: - Stroke *Q Stroke Criteria *Q: - AMI *Q AMI Criteria *Q:
--- NOTE | 2017-08-23 10:12 | PCM.PN ---
- General Info Date of Service: 08/23/17 Subjective Update: He is feeling much better with more energy and able to eat and hold down food. Functional Status: Reports: Pain Controlled - Review of Systems General: Reports: Weakness HEENT: Reports: No Symptoms Pulmonary: Reports: No Symptoms Cardiovascular: Reports: No Symptoms Gastrointestinal: Reports: No Symptoms Genitourinary: Reports: No Symptoms Musculoskeletal: Reports: Other (Chronic Neuro mascular pain) - Patient Data Vitals - Most Recent: Last Vital Signs Temp 98.4 F 08/23/17 07:10 Pulse 72 08/23/17 07:10 Resp 16 08/23/17 07:10 BP 148/67 H 08/23/17 07:10 Pulse Ox 97 08/23/17 07:10 Weight - Most Recent: 192 lb 0.009 oz I&O - Last 24 Hours: Intake & Output 08/22/17 08/23/17 08/23/17 22:59 06:59 14:59 Intake Total 100 360 Output Total 600 1000 Balance -500 -640 Lab Results Last 24 Hours: Laboratory Results - last 24 hr 08/23/17 Range/Units 05:36 WBC 10.7 (4.5-11.0) K/uL RBC 4.22 L (4.30-5.90) M/uL Hgb 12.7 (12.0-15.0) g/dL Hct 37.9 L (40.0-54.0) % MCV 90 (80-98) fL MCH 30 (27-31) pg MCHC 34 (32-36) % Plt Count 206 (150-400) K/uL Neut % (Auto) 68 H (36-66) % Lymph % (Auto) 18 L (24-44) % [place] % (Auto) 13 H (2-6) % Eos % (Auto) 2 (2-4) % Baso % (Auto) 0 (0-1) % Med Orders - Current: Current Medications Aspirin (Ecotrin) 325 - 650 mg PO Q6H PRN PRN Reason: Pain (moderate 4-6) Last Admin: 08/20/17 22:06 Dose: 650 mg Ceftriaxone Sodium 1 gm/ (Sodium Chloride) 50 mls @ 100 mls/hr IV Q24H [facility] Last Admin: 08/22/17 19:18 Dose: 100 mls/hr Levofloxacin/Dextrose 500 mg/ (Premix) 100 mls @ 100 mls/hr IV Q24H [facility] Last Admin: 08/22/17 18:00 Dose: 100 mls/hr Methimazole (Methimazole) 10 mg PO DAILY [facility] Last Admin: 08/23/17 09:14 Dose: 10 mg Methimazole (Methimazole) 10 mg PO BEDTIME [facility] Last Admin: 08/22/17 20:40 Dose: Not Given Ondansetron HCl (Zofran Odt) 4 mg PO Q6H PRN PRN Reason: Nausea able to take PO Sodium Chloride (Saline Flush) 10 ml FLUSH ASDIRECTED PRN PRN Reason: Keep Vein Open Last Admin: 08/20/17 15:23 Dose: 10 ml Discontinued Medications Acetaminophen (Tylenol Extra Strength) 1,000 mg PO ONETIME ONE Stop: 08/20/17 16:02 Last Admin: 08/20/17 16:14 Dose: 1,000 mg Sodium Chloride (Normal Saline) 1,000 mls @ 1,000 mls/hr IV .BOLUS ONE Stop: 08/20/17 16:04 Last Admin: 08/20/17 15:22 Dose: 1,000 mls/hr Sodium Chloride (Normal Saline) 1,000 mls @ 1,000 mls/hr IV .BOLUS ONE Stop: 08/20/17 17:27 Last Admin: 08/20/17 16:36 Dose: 1,000 mls/hr Ciprofloxacin/Dextrose 400 mg/ (Premix) 200 mls @ 200 mls/hr IV ONETIME ONE Stop: 08/20/17 18:01 Last Admin: 08/20/17 17:12 Dose: 200 mls/hr Dextrose/Sodium Chloride (Dextrose 5%-Normal Saline) 1,000 mls @ 150 mls/hr IV ASDIRECTED [facility] Last Admin: 08/21/17 16:11 Dose: 150 mls/hr Dextrose/Sodium Chloride (Dextrose 5%-Normal Saline) 1,000 mls @ 75 mls/hr IV ASDIRECTED [facility] Last Admin: 08/22/17 05:29 Dose: 75 mls/hr Metoprolol Tartrate (Lopressor) 50 mg PO ONETIME ONE Stop: 08/20/17 15:28 Last Admin: 08/20/17 15:30 Dose: 50 mg Ondansetron HCl (Zofran) 4 mg IVPUSH ONETIME ONE Stop: 08/20/17 15:00 Last Admin: 08/20/17 15:02 Dose: 4 mg - Exam General: Alert, Oriented HEENT: Pupils Equal, Pupils Reactive, EOMI, Mucous Membr. Moist/[place] Neck: Supple Lungs: Clear to Auscultation, Normal Respiratory Effort Cardiovascular: Regular Rate, Regular Rhythm GI/Abdominal Exam: Normal Bowel Sounds, Soft, Non-Tender, No Organomegaly, No Distention, No Abnormal Bruit, No Mass, Pelvis Stable Extremities: Normal Inspection, Normal Range of Motion, Non-Tender, No Pedal Edema, Normal Capillary Refill Peripheral Pulses: 1+: Radial (L), Radial (R) Skin: Warm, Dry, Intact Psy/Mental Status: Alert, Normal Affect, Normal Mood - Problem List Review Problem List Initiated/Reviewed/Updated: Yes - My Orders Last 24 Hours: My Active Orders 08/22/17 17:02 Convert IV to Saline Lock [OM.PC] Routine 08/23/17 10:11 Ready for Discharge [RC] PER UNIT ROUTINE - Plan Plan:: Assessment/Plan; l. UTI: Cultures so far are neg. He is afebrile. CBC improved with WBC 10,000 2. Hyperthyroid: (thyrotoxicosis) Continue with 20 mg daily of methimazole. 3. Hypertension: Will continue with metolprolol to 25 mg bid. 4. Polyperipheral neuropathy: Chronic 5. Nummular dermatiits: Chronic Discharge today.
[2017-08-23] MEDS ORDERED: Levofloxacin 500 MG Tab PO ONE (10:45)
== END 2017-08-23 10:50 | disposition home or self-care (01) | DRG 690 ==
LOC: JP.ED 14:32 → JP.MS 17:46
PROVIDERS: ADMIT Internal Medicine; ATTEND Internal Medicine
DX: N39.0 Urinary tract infection, site not specified (principal); E05.00 Thyrotoxicosis with diffuse goiter without thyrotoxic crisis or storm; I10 Essential (primary) hypertension; G62.9 Polyneuropathy, unspecified; L30.0 Nummular dermatitis; R53.1 Weakness; R53.83 Other fatigue; R11.2 Nausea with vomiting, unspecified; H54.7 Unspecified visual loss; Z79.82 Long term (current) use of aspirin
CPT/HCPCS: 36415; 51798; 80048; 81001; 83605; 84439; 84481; 85027; 87040 ×2; 87086; 96361; 96365; 96375; 99285; A9270 ×2; J0744; J2405; J7040 ×2; J7050; 80053; 85025; J0696; J1956

== ENCOUNTER 2022-11-06 09:01 | Emergency (ER) | payer MEDICARE ==
[2022-11-06] MEDS ORDERED: Sodium Chloride 0.9% 10 ML Syringe FLUSH PRN (09:40)
[2022-11-06 10:12] LABS: ESTIMATED GFR 71 mL/min (>60)
[2022-11-06] MEDS ORDERED: Sodium Chloride 0.9% 1,000 ML IV SCH (10:30)
[2022-11-06] MEDS ORDERED: Sodium Chloride 0.9% 10 ML SDV FLUSH ONE (10:34)
[2022-11-06] MEDS ORDERED: Iopamidol 612 MG/ML 100 ML Bottle IV PRN (10:34)
[2022-11-06] MEDS ORDERED: Sodium Chloride 0.9% 100 ML IV SCH (10:45)
[2022-11-06] MEDS ORDERED: Pantoprazole 40 MG Vial IVPUSH ONE (11:11)
[2022-11-06] MEDS ORDERED: Alum Hydrox/Mag Hydrox/Simeth 15 ML, Lidocaine 2% 15 ML PO ONE ×2 (11:17)
== END 2022-11-06 12:37 | disposition home or self-care (01) ==
LOC: JP.ED 09:01
DX: R10.11 Right upper quadrant pain (principal); R10.13 Epigastric pain; I10 Essential (primary) hypertension; Z90.49 Acquired absence of other specified parts of digestive tract; Z79.899 Other long term (current) drug therapy
CPT/HCPCS: 36415; 74177; 80053; 83605; 83690; 85025; 96361; 96374; 99284; A9270; C9113; J3490; J7030; Q9967

== ENCOUNTER 2022-11-07 09:09 | Day surgery (SDC) | payer MEDICARE ==
[2022-11-07] MEDS ORDERED: Sodium Chloride 0.9% 1,000 ML IV SCH (10:15)
[2022-11-07] MEDS ORDERED: Midazolam 1 MG/ML 2 ML SDV ONE (10:43)
[2022-11-07] MEDS ORDERED: fentaNYL 50 MCG/ML SDV ONE (10:43)
[2022-11-07] MEDS ORDERED: Propofol 200 MG/20 ML SDV ONE ×2 (10:43→10:55)
== END 2022-11-07 12:05 | disposition home or self-care (01) ==
LOC: JP.SDS 09:09
PROVIDERS: ATTEND Surgery
DX: C18.0 Malignant neoplasm of cecum (principal); K57.30 Diverticulosis of large intestine without perforation or abscess without bleeding; K21.00 Gastro-esophageal reflux disease with esophagitis, without bleeding; K52.9 Noninfective gastroenteritis and colitis, unspecified; G62.9 Polyneuropathy, unspecified; I10 Essential (primary) hypertension; I71.20 Thoracic aortic aneurysm, without rupture, unspecified; Z87.891 Personal history of nicotine dependence
CPT/HCPCS: J2250; J2704; J3010

== ENCOUNTER 2023-03-05 15:27 | Emergency (ER) | payer MEDICARE ==
[2023-03-05 18:59] LABS: BASOPHILS PERCENT AUTO 0.1 % (0.1-1.3); HEMATOCRIT 37.3 % (38.4-49.7); HEMOGLOBIN 12.4 g/dL (12.9-16.9); IMMATURE GRAN ABSOLUTE AUTO 0.05 K/uL (0.00-0.23); IMMATURE GRAN PERCENT AUTO 0.4 % (0.0-0.7); LYMPHOCYTES ABSOLUTE AUTO 2.27 K/uL (0.8-3.3); LYMPHOCYTES PERCENT AUTO 16.7 % (11.4-47.7); MEAN CORPUSCULAR HEMOGLOBIN 29.2 pg (31.6-35.5); MEAN CORPUSCULAR HGB CONC 33.2 g/dL (31.6-35.5); MONOCYTES ABSOLUTE AUTO 1.14 K/uL (0.20-0.90); MONOCYTES PERCENT AUTO 8.4 % (3.3-12.6); NEUTROPHILS ABSOLUTE AUTO 10.13 K/uL (1.0-7.6); NEUTROPHILS PERCENT AUTO 74.4 % (40.0-78.1); PLATELET COUNT,PLT 254 K/uL (130-375); RED BLOOD CELL COUNT 4.24 M/uL (4.14-5.76); WHITE BLOOD CELL COUNT,WBC 13.6 K/uL (3.2-11.0)
[2023-03-05 19:05] LABS: BASOPHILS ABSOLUTE AUTO 0.02 K/uL (0.00-0.10)
[2023-03-05 19:30] LABS: CALCIUM 8.7 mg/dL (8.5-10.1); CREATININE 1.2 mg/dL (0.8-1.3); EST CRCL DRUG DOSING (CG) 55.76 mL/min; POTASSIUM,K 4.4 mmol/L (3.6-5.2)
[2023-03-05 19:34] LABS: ANION GAP 9.4 mmol/L (5.0-14.0)
== END 2023-03-05 20:35 | disposition home or self-care (01) ==
LOC: JP.ED 15:27
DX: K59.00 Constipation, unspecified (principal); C18.9 Malignant neoplasm of colon, unspecified; I10 Essential (primary) hypertension; Z79.899 Other long term (current) drug therapy
CPT/HCPCS: 36415; 74019; 74019-26; 80048; 83605; 85025; 99283

== ENCOUNTER 2025-03-17 07:21 | Day surgery (SDC) | payer MEDICARE ==
[2025-03-17] MEDS ORDERED: Propofol 200 MG/20 ML SDV ONE (07:29)
[2025-03-17] MEDS ORDERED: fentaNYL 100 MCG/2 ML SDV ONE (07:29)
[2025-03-17] MEDS: Lactated Ringers 1,000 ML IV SCH (08:00)
== END 2025-03-17 11:00 | disposition home or self-care (01) ==
LOC: JP.SDS 07:21
PROVIDERS: ATTEND Surgery
DX: Z12.11 Encounter for screening for malignant neoplasm of colon (principal); I10 Essential (primary) hypertension; Z88.8 Allergy status to other drugs, medicaments and biological substances; Z98.0 Intestinal bypass and anastomosis status; Z85.038 Personal history of other malignant neoplasm of large intestine
CPT/HCPCS: G0105; J2704; J3010; J7120